=== PATIENT | female | born 1930 | race Caucasian/White ===

== ENCOUNTER 2019-12-11 18:03 | Inpatient (IN) | payer MEDICARE, OTHER ==
[~2019-12-11] VITALS: Ht 175.3 cm; Wt 63.6 kg
[2019-12-11] MEDS ORDERED: METOPROLOL TARTRATE 5MG/5ML VIAL IV ONE ×2 (18:15→18:45)
[2019-12-11] MEDS: METOPROLOL TARTRATE 5MG/5ML VIAL IV ONE ×2 (18:39→19:44)
[2019-12-11] MEDS ORDERED: METOPROLOL TARTRATE 25MG TABLET PO ONE ×2 (18:45→19:00)
[2019-12-11 19:15] LABS: BASOPHILS % 0.5 % (0.0-2.0); EOSINOPHILS % 2.6 % (0.0-5.0); HEMATOCRIT. 38.9 % (36.0-48.0); MEAN CORPUSCULAR HEMOGLOBIN 30.1 pg (28.0-32.0); MEAN CORPUSCULAR VOLUME 89.9 fL (81.0-99.0); MEAN PLATELET VOLUME 8.4 fl (7.4-10.4); MONOCYTES % 7.6 % (2.0-8.0); NEUTROPHILS % 65.3 % (40.0-76.0); PLATELET 258 x1000/uL (130-400); RED BLOOD CELL COUNT 4.32 mill/uL (4.2-5.4); RED CELL DISTRIBUTION WIDTH 15.4 % (11.6-14.6)
[2019-12-11 19:24] LABS: CHLORIDE 106 mEq/L (98-107)
[2019-12-11 19:28] LABS: ETHANOL BLOOD < 10 mg/dL
[2019-12-11 19:57] LABS: PROTHROMBIN TIME 10.6 sec (9.6-11.0)
[2019-12-11 20:04] LABS: T4 FREE 1.31 ng/dL (0.76-1.46)
[2019-12-11] MEDS ORDERED: IOHEXOL-300 100 ML BOTTLE ONE (23:08)
[2019-12-12] VITALS (9 sets, daily range): BP systolic 135–162; BP diastolic 47–74
[2019-12-12 00:08] LABS: *AMPHETAMINES SCREEN URINE NEGATIVE (NEGATIVE); *BARBITURATES SCREEN URINE NEGATIVE (NEGATIVE); *BENZODIAZEPINES SCREEN URINE NEGATIVE (NEGATIVE); *COCAINE SCREEN URINE NEGATIVE (NEGATIVE)
[2019-12-12 00:09] LABS: CANNABINOID URINE SCREEN NEGATIVE (NEGATIVE); METHADONE URINE SCREEN NEGATIVE (NEGATIVE); OPIATES URINE SCREEN NEGATIVE (NEGATIVE); PHENCYCLIDINE URINE SCREEN NEGATIVE (NEGATIVE)
[2019-12-12 00:20] LABS: CLARITY URINE CLEAR (CLEAR); COLOR URINE YELLOW (YELLOW); KETONES URINE NEGATIVE (NEGATIVE); LEUKOCYTE ESTERASE URINE NEGATIVE (NEGATIVE); NITRITE URINE NEGATIVE (NEGATIVE); OCCULT BLOOD URINE TRACE (NEGATIVE); PROTEIN URINE NEGATIVE (NEGATIVE); SPECIFIC GRAVITY URINE 1.035 (1.005-1.030); UROBILINOGEN URINE 0.2 E.U./dL (0.2-1.0)
[2019-12-12] MEDS ORDERED: ASPI-1497 MT (01:51)
[2019-12-12] MEDS ORDERED: LEVO25TA7 MT (01:51)
[2019-12-12] MEDS ORDERED: SITA50TA3 MT (01:51)
[2019-12-12] MEDS ORDERED: ALLO100T MT (01:55)
[2019-12-12] MEDS ORDERED: SIMV-46 MT (01:55)
[2019-12-12] MEDS ORDERED: METO25TA6 MT (01:57)
[2019-12-12] MEDS ORDERED: VALS1TAB75 MT (01:57)
[2019-12-12] MEDS ORDERED: DEXTROSE 50% WATER 50ML SYRINGE IV PRN (02:15)
[2019-12-12] MEDS: BLOOD SUGAR DIAGNOSTIC STRIP TEST SCH ×4 (06:39→21:36)
[2019-12-12] MEDS: LEVOTHYROXINE SODIUM 25MCG TABLET PO SCH (06:39)
[2019-12-12 07:31] LABS: BASOPHILS % 0.5 % (0.0-2.0); EOSINOPHILS % 1.3 % (0.0-5.0); HEMATOCRIT. 39.8 % (36.0-48.0); HEMOGLOBIN. 13.3 g/dL (12.0-16.0); LYMPHOCYTES % 27.3 % (20.0-50.0); MEAN CORPUSCULAR HEMOGLOBIN 29.8 pg (28.0-32.0); MEAN CORPUSCULAR VOLUME 89.3 fL (81.0-99.0); MEAN PLATELET VOLUME 8.2 fl (7.4-10.4); MONOCYTES % 8.8 % (2.0-8.0); NEUTROPHILS % 62.1 % (40.0-76.0); PLATELET 243 x1000/uL (130-400); RED BLOOD CELL COUNT 4.46 mill/uL (4.2-5.4); RED CELL DISTRIBUTION WIDTH 15.1 % (11.6-14.6)
[2019-12-12] MEDS: INSULIN LISPRO 100 UNITS/ML SUBCUT SCH ×4 (07:41→21:35)
[2019-12-12] MEDS ORDERED: ENOXAPARIN 40MG/0.4ML SYR SUBCUT SCH (09:00)
[2019-12-12] MEDS: ASPIRIN 81MG TABLET PO SCH (09:09)
[2019-12-12] MEDS: LOSARTAN POTASSIUM 50 MG TABLET PO SCH (09:09)
[2019-12-12] MEDS: ALLOPURINOL 100 MG TABLET PO SCH (09:10)
[2019-12-12] MEDS: METOPROLOL TARTRATE 50MG TABLET PO SCH ×2 (09:10→21:34)
[2019-12-12] MEDS: ENOXAPARIN 30MG/0.3ML SYR SUBCUT SCH (09:12)
[2019-12-12] MEDS: SODIUM CHLORIDE 0.9% 1,000 ML IV SCH (09:47)
[2019-12-12] MEDS: ATORVASTATIN CALCIUM 40MG TABLET PO SCH (21:34)
[2019-12-13] VITALS: BP 128/61
[2019-12-13 04:00] VITALS: BP 140/56
[2019-12-13] MEDS: SODIUM CHLORIDE 0.9% 1,000 ML IV SCH (06:24)
[2019-12-13] MEDS: BLOOD SUGAR DIAGNOSTIC STRIP TEST SCH ×4 (06:24→21:00)
[2019-12-13] MEDS: LEVOTHYROXINE SODIUM 25MCG TABLET PO SCH (06:24)
[2019-12-13 08:00] VITALS: BP 162/66
[2019-12-13] MEDS: ENOXAPARIN 30MG/0.3ML SYR SUBCUT SCH (08:43)
[2019-12-13] MEDS: ASPIRIN 81MG TABLET PO SCH ×2 (08:43→08:51)
[2019-12-13] MEDS: ALLOPURINOL 100 MG TABLET PO SCH ×2 (08:43→08:51)
[2019-12-13] MEDS: INSULIN LISPRO 100 UNITS/ML SUBCUT SCH ×4 (08:44→21:00)
[2019-12-13] MEDS: LOSARTAN POTASSIUM 50 MG TABLET PO SCH ×2 (08:44→08:51)
[2019-12-13] MEDS: METOPROLOL TARTRATE 50MG TABLET PO SCH ×3 (08:44→21:10)
[2019-12-13 12:00] VITALS: BP 144/66
[2019-12-13 16:00] VITALS: BP 183/73
[2019-12-13 20:00] VITALS: BP 115/53
[2019-12-13] MEDS: ATORVASTATIN CALCIUM 40MG TABLET PO SCH (21:10)
[2019-12-14] VITALS (9 sets, daily range): BP systolic 126–182; BP diastolic 57–95
[2019-12-14] MEDS: SODIUM CHLORIDE 0.9% 1,000 ML IV SCH ×2 (00:45→21:04)
[2019-12-14] MEDS: LEVOTHYROXINE SODIUM 25MCG TABLET PO SCH (06:52)
[2019-12-14] MEDS: BLOOD SUGAR DIAGNOSTIC STRIP TEST SCH ×4 (06:53→20:54)
[2019-12-14 07:34] LABS: BASOPHILS % 0.4 % (0.0-2.0); HEMATOCRIT. 38.6 % (36.0-48.0); HEMOGLOBIN. 12.9 g/dL (12.0-16.0); MEAN CORPUSCULAR HEMOGLOBIN 29.6 pg (28.0-32.0); MEAN CORPUSCULAR VOLUME 88.5 fL (81.0-99.0); MEAN PLATELET VOLUME 8.2 fl (7.4-10.4); MONOCYTES % 7.5 % (2.0-8.0); NEUTROPHILS % 67.1 % (40.0-76.0); PLATELET 220 x1000/uL (130-400); RED BLOOD CELL COUNT 4.36 mill/uL (4.2-5.4); RED CELL DISTRIBUTION WIDTH 15.2 % (11.6-14.6)
[2019-12-14] MEDS: INSULIN LISPRO 100 UNITS/ML SUBCUT SCH ×4 (07:41→20:55)
[2019-12-14] MEDS: METOPROLOL TARTRATE 50MG TABLET PO SCH (09:00)
[2019-12-14] MEDS: ALLOPURINOL 100 MG TABLET PO SCH (09:00)
[2019-12-14] MEDS: LOSARTAN POTASSIUM 50 MG TABLET PO SCH (09:00)
[2019-12-14] MEDS ORDERED: GENTAMICIN SULF 40MG/ML 2ML VIAL ONE (11:45)
[2019-12-14] MEDS ORDERED: IOHEXOL-300 100 ML BOTTLE ONE (11:45)
[2019-12-14] MEDS ORDERED: LIDOCAINE HCL 1% 20ML VIAL (Pyxis) INJ ONE (11:46)
[2019-12-14] MEDS ORDERED: GENTAMICIN/NS IRRIGATION 500 ML IR ONE (11:46)
[2019-12-14] MEDS ORDERED: CEFAZOLIN 1000MG PREMIX 50 ML IV ONE ×2 (11:54→12:06)
[2019-12-14] MEDS ORDERED: FENTANYL CITRATE/PF 50MCG/ML 2ML VIAL ONE (12:10)
[2019-12-14] MEDS ORDERED: MIDAZOLAM HCL 2 MG/2 ML VIAL ONE (12:10)
[2019-12-14] MEDS ORDERED: DIPHENHYDRAMINE 50MG/ML VIAL ONE (12:11)
[2019-12-14] MEDS ORDERED: HYDROCODONE/ACETAMINOPHEN 5/325MG TABLET PO PRN (14:15)
[2019-12-14] MEDS: DILTIAZEM HCL 60MG TABLET PO SCH (17:17)
[2019-12-14] MEDS: ATORVASTATIN CALCIUM 40MG TABLET PO SCH (20:53)
[2019-12-14] MEDS: CEFAZOLIN 1000MG PREMIX 50 ML IV SCH (20:53)
[2019-12-15] VITALS (9 sets, daily range): BP systolic 108–169; BP diastolic 55–83
[2019-12-15] MEDS: DILTIAZEM HCL 60MG TABLET PO SCH ×3 (00:07→12:30)
[2019-12-15] MEDS: CEFAZOLIN 1000MG PREMIX 50 ML IV SCH (04:23)
[2019-12-15 06:05] LABS: BASOPHILS % 0.3 % (0.0-2.0); EOSINOPHILS % 1.4 % (0.0-5.0); HEMOGLOBIN. 13.2 g/dL (12.0-16.0); LYMPHOCYTES % 22.8 % (20.0-50.0); MEAN CORPUSCULAR HEMOGLOBIN 30.1 pg (28.0-32.0); MEAN CORPUSCULAR VOLUME 88.8 fL (81.0-99.0); MEAN PLATELET VOLUME 8.4 fl (7.4-10.4); MONOCYTES % 9.2 % (2.0-8.0); NEUTROPHILS % 66.3 % (40.0-76.0); PLATELET 213 x1000/uL (130-400); RED BLOOD CELL COUNT 4.39 mill/uL (4.2-5.4); RED CELL DISTRIBUTION WIDTH 15.1 % (11.6-14.6)
[2019-12-15] MEDS: LEVOTHYROXINE SODIUM 25MCG TABLET PO SCH (06:17)
[2019-12-15] MEDS: BLOOD SUGAR DIAGNOSTIC STRIP TEST SCH ×2 (06:27→11:52)
[2019-12-15] MEDS: INSULIN LISPRO 100 UNITS/ML SUBCUT SCH ×2 (07:20→12:31)
[2019-12-15] MEDS ORDERED: LOSARTAN POTASSIUM 25 MG TABLET PO SCH (09:00)
[2019-12-15] MEDS: ASPIRIN 81MG TABLET PO SCH (09:11)
[2019-12-15] MEDS: ALLOPURINOL 100 MG TABLET PO SCH (09:11)
[2019-12-15] MEDS ORDERED: LOSA25TA3 PO (13:01)
[2019-12-15] MEDS ORDERED: DILT60TA35 PO (13:01)
== END 2019-12-15 14:57 | disposition home or self-care (01) | DRG 242 ==
LOC: ER 18:03 → 6WST 21:49 → EDBEDREQSVC 21:53 → EDBEDREQTM 21:53 → EDBEDREQ 21:53 → ENRESERV 23:36 → 3WST 12-14 15:25
PROVIDERS: ADMIT Internal Medicine; ATTEND Internal Medicine
PROC: 0JH606Z Insertion of Pacemaker, Dual Chamber into Chest Subcutaneous Tissue and Fascia, Open Approach (ICD-10-PCS; principal; 2019-12-14)
PROC: 02H63JZ Insertion of Pacemaker Lead into Right Atrium, Percutaneous Approach (ICD-10-PCS; 2019-12-14)
PROC: 02HK3JZ Insertion of Pacemaker Lead into Right Ventricle, Percutaneous Approach (ICD-10-PCS; 2019-12-14)
PROC: B5171ZZ Fluoroscopy of Left Subclavian Vein using Low Osmolar Contrast (ICD-10-PCS; 2019-12-14)
DX: I47.1 Supraventricular tachycardia (principal); N17.0 Acute kidney failure with tubular necrosis; I49.5 Sick sinus syndrome; D72.829 Elevated white blood cell count, unspecified; E03.9 Hypothyroidism, unspecified; E11.9 Type 2 diabetes mellitus without complications; Z86.73 Personal history of transient ischemic attack (TIA), and cerebral infarction without residual deficits; I10 Essential (primary) hypertension; E78.1 Pure hyperglyceridemia; E66.9 Obesity, unspecified; E78.5 Hyperlipidemia, unspecified; E27.8 Other specified disorders of adrenal gland
CPT/HCPCS: 33208; 36415; 71045; 71260; 75820; 80048; 80053; 80061; 80305; 80320; 81003; 82962; 83036; 83520; 83605; 83735; 83880; 84439; 84443; 84481; 84484; 85025; 86850; 86900; 87426; 93005; 93306; 99291; A4565; C1785; C1893; C1898; J0690; J1200; J1580; J1650; J1815; J2250; J3010; J3490; J7030; Q9967; G0480